=== PATIENT | male | born 1980 | race Caucasian/White ===

== ENCOUNTER 2017-10-30 10:02 | Emergency (ER) | payer BC, OTHER ==
--- NOTE | 2017-10-30 10:17 | EDM.PDOC ---
ED HPI GENERAL MEDICAL PROBLEM - General Chief Complaint: Neuro Symptoms/Deficits Stated Complaint: DIZZINESS Time Seen by Provider: 10/30/17 10:17 Source of Information: Reports: Patient, Family History Limitations: Reports: No Limitations - History of Present Illness INITIAL COMMENTS - FREE TEXT/NARRATIVE: HISTORY AND PHYSICAL: 37-year-old male who is physically fit and not ill has experienced exquisite dizziness and difficulty getting up to the bathroom this morning History of Present Illness: walking back to the bed he had significant dizziness and difficulty with walking Smoker Review of Systems: As per history of present illness and below otherwise all systems reviewed and negative. Past medical history: As per history of present illness and as reviewed below otherwise noncontributory. Surgical history: As per history of present illness and as reviewed below otherwise noncontributory. Social history: No reported history of drug or alcohol abuse. Family history: As per history of present illness and as reviewed below otherwise noncontributory. Physical exam: Alert and oriented male who is answering questions appropriately in full sentences without any shortness of breath. Pain still patient does not have dizziness if turning his head he would have extreme vertigo. HEENT: Atraumatic, normocehpalic, pupils reactive, negative for conjunctival pallor or scleral icterus, mucous membranes moist, throat clear, neck supple, nontender, trachea midline. Lungs: Clear to auscultation, breath sounds equal bilaterally, chest non tender. Heart: S1S2, regular, negative for clicks, rubs, or JVD. Abdomen: Soft, nondistended, nontender. Negative for masses or hepatossplenmegaly. Negative for costovertebral tenderness. Pelvis: Stable nontender. Genitourinary: Deferred. Rectal: Deferred Extremities: Atraumatic, negative for cords or calf pain. Neurovascular unremarkable. Neuro: Awake, alert, oriented. Cranial nerves II through XII unremarkable. Cerebellum unremarkable. Motor and sensory unremarkable throughout. Exam nonfocal. Patient tends and understood diagnosis and recommended course of action. Questions were answered. Diagnostics: [] CBC CMP head CT scan amylase lipase troponin EKG chest x-ray Therapeutics: [] Impression: []#1 dehydration #2 vertigo #3 early maxillary sinusitis Plan: []Discharged to home Meclizine Augmentin 875 twice a day 10 days Follow-up with Tenisha maneuver by a therapist or chiropractor Return to the emergency room as discussed and directed Refresh with power aid or similar product Definitive disposition and diagnosis as appropriate pending reevaluation and review of above. 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 - Infectious Disease History Infectious Disease History: Reports: Chicken Pox - Past Surgical History Musculoskeletal Surgical History: Reports: Amputation, Other (See Below) Other Musculoskeletal Surgeries/Procedures:: left ring finger partial amputation Social & Family History - Family History Family Medical History: Noncontributory - Tobacco Use Smoking Status *Q: Current Every Day Smoker Years of Tobacco use: 20 Packs/Tins Daily: 1 - Caffeine Use Caffeine Use: Reports: Soda - Recreational Drug Use Recreational Drug Use: No ED ROS GENERAL - Review of Systems Review Of Systems: ROS reveals no pertinent complaints other than HPI. ED EXAM, NEURO - Physical Exam Exam: See Below Course - Vital Signs Last Recorded V/S: Last Vital Signs Temp 36.0 C 10/30/17 10:09 Pulse 87 10/30/17 10:09 Resp 20 10/30/17 10:09 BP 142/94 H 10/30/17 10:09 Pulse Ox 99 10/30/17 10:09 - Orders/Labs/Meds Orders: Active Orders 24 hr Category Date Time Status EKG 12 Lead [EKG Documentation Completion] [RC] STAT Care 10/30/17 10:11 Active EKG Documentation Completion [RC] STAT Care 10/30/17 10:24 Inactive Chest 2V [CR] Stat Exams 10/30/17 10:28 Ordered CULTURE URINE [RM] Stat Lab 10/30/17 10:25 Ordered DRUG SCREEN, URINE [URCHEM] Stat Lab 10/30/17 10:25 Ordered UA W/MICROSCOPIC [URIN] Stat Lab 10/30/17 10:25 Ordered Sodium Chloride 0.9% [Saline Flush] Med 10/30/17 10:25 Active 10 ml FLUSH ASDIRECTED PRN Sodium Chloride 0.9% [Saline Flush] Med 10/30/17 10:25 Active 2.5 ml FLUSH ASDIRECTED PRN Saline Lock Insert [OM.PC] Stat Oth 10/30/17 10:24 Ordered Medication Orders Sodium Chloride (Saline Flush) 10 ml FLUSH ASDIRECTED PRN PRN Reason: Keep Vein Open Last Admin: 10/30/17 10:33 Dose: 10 ml Sodium Chloride (Saline Flush) 2.5 ml FLUSH ASDIRECTED PRN PRN Reason: Keep Vein Open Last Admin: 10/30/17 10:33 Dose: 2.5 ml Labs: Laboratory Tests 10/30/17 10/30/17 10/30/17 Range/Units 10:13 10:13 10:13 WBC 8.56 (4.0-11.0) K/uL RBC 5.32 (4.50-5.90) M/uL Hgb 17.2 H (13.0-17.0) g/dL Hct 48.3 (38.0-50.0) % MCV 90.8 (80.0-98.0) fL MCH 32.3 H (27.0-32.0) pg MCHC 35.6 (31.0-37.0) g/dL RDW Std Deviation 42.3 (28.0-62.0) fl RDW Coeff of Sydnee 13 (11.0-15.0) % Plt Count 239 (150-400) K/uL MPV 10.40 (7.40-12.00) fL Neut % (Auto) 49.4 (48.0-80.0) % Lymph % (Auto) 39.1 (16.0-40.0) % [place] % (Auto) 7.1 (0.0-15.0) % Eos % (Auto) 3.6 (0.0-7.0) % Baso % (Auto) 0.8 (0.0-1.5) % Neut # (Auto) 4.2 (1.4-5.7) K/uL Lymph # (Auto) 3.4 H (0.6-2.4) K/uL [place] # (Auto) 0.6 (0.0-0.8) K/uL Eos # (Auto) 0.3 (0.0-0.7) K/uL Baso # (Auto) 0.1 (0.0-0.1) K/uL Nucleated RBC % 0.0 /100WBC Nucleated RBCs # 0 K/uL Sodium 138 (136-148) mmol/L Potassium 3.7 (3.5-5.1) mmol/L Chloride 104 (98-107) mmol/L Carbon Dioxide 21.3 (21.0-32.0) mmol/L BUN 14 (7.0-18.0) mg/dL Creatinine 1.1 (0.8-1.3) mg/dL Est Cr Clr Drug Dosing 88.09 mL/min Estimated GFR (MDRD) > 60.0 ml/min Glucose 116 H (74-106) mg/dL Calcium 8.8 (8.5-10.1) mg/dL Total Bilirubin 0.4 (0.2-1.0) mg/dL AST 26 (15-37) IU/L ALT 54 (14-63) IU/L Alkaline Phosphatase 66 (46-116) U/L Ammonia 53 (19-54) ug/dL Troponin I < 0.050 (0.000-0.056) ng/mL Total Protein 7.2 (6.4-8.2) g/dL Albumin 3.8 (3.4-5.0) g/dL Globulin 3.4 (2.0-3.5) g/dL Albumin/Globulin Ratio 1.1 L (1.3-2.8) Amylase 29 (25-115) U/L Lipase 108 (73-393) U/L Meds: Medications Generic Name Dose Route Start Last Admin Trade Name Freq PRN Reason Stop Dose Admin Sodium Chloride 10 ml 10/30/17 10:25 10/30/17 10:33 Saline Flush FLUSH 10 ml ASDIRECTED PRN Administration Keep Vein Open Sodium Chloride 2.5 ml 10/30/17 10:25 10/30/17 10:33 Saline Flush FLUSH 2.5 ml ASDIRECTED PRN Administration Keep Vein Open Discontinued Medications Generic Name Dose Route Start Last Admin Trade Name Freq PRN Reason Stop Dose Admin Aspirin 325 mg 10/30/17 10:25 10/30/17 10:32 Aspirin PO 10/30/17 10:26 325 mg ONETIME ONE Administration Sodium Chloride 1,000 mls @ 999 mls/hr 10/30/17 10:25 10/30/17 10:32 Normal Saline IV 10/30/17 11:25 999 mls/hr STAT ONE Administration Meclizine HCl 25 mg 10/30/17 11:51 Antivert PO 10/30/17 11:52 ONETIME ONE Departure - Departure Time of Disposition: 12:01 Disposition: Home, Self-Care 01 Condition: Good Clinical Impression: Vertigo, Dehydration Sinusitis Qualifiers: Sinusitis location: maxillary Chronicity: acute Recurrence: non-recurrent Qualified Code(s): J01.00 - Acute maxillary sinusitis, unspecified - Discharge Information Prescriptions: Amoxicillin/Potassium Clav [Augmentin 875-125 Tablet] 1 each PO BID #20 tablet Meclizine [Antivert] 25 mg PO TID PRN #30 tab PRN Reason: Dizziness Instructions: Dehydration, Adult, [id number], Vertigo, Dizziness, Easy-to- Read, How to Perform the Tenisha Maneuver Referrals: PCP,None [Primary Care Provider] - Forms: ED Department Discharge Additional Instructions: The following information is given to patients seen in the emergency department who are being discharged to home. This information is to outline your options for follow-up care. We provide all patients seen in our emergency department with a follow-up referral. The need for follow-up, as well as the timing and circumstances, are variable depending upon the specifics of your emergency department visit. If you don't have a primary care physician on staff, we will provide you with a referral. We always advise you to contact your personal physician following an emergency department visit to inform them of the circumstance of the visit and for follow-up with them and/or the need for any referrals to a consulting specialist. The emergency department will also refer you to a specialist when appropriate. This referral assures that you have the opportunity for followup care with a specialist. All of these measure are taken in an effort to provide you with optimal care, which includes your followup. Under all circumstances we always encourage you to contact your private physician who remains a resource for coordinating your care. When calling for followup care, please make the office aware that this follow-up is from your recent emergency room visit. If for any reason you are refused follow-up, please contact the [facility] emergency department at and asked to speak to the emergency department charge nurse. Follow up with your primary care provider: you are found to be Dehydrated Vertigo Mild sinusitis Medications have been sent to your pharmacy Worsening of symptoms return for further evaluation - My Orders Last 24 Hours: My Active Orders 10/30/17 10:24 EKG Documentation Completion [RC] STAT Saline Lock Insert [OM.PC] Stat 10/30/17 10:25 CULTURE URINE [RM] Stat DRUG SCREEN, URINE [URCHEM] Stat UA W/MICROSCOPIC [URIN] Stat Sodium Chloride 0.9% [Saline Flush] 10 ml FLUSH ASDIRECTED PRN Sodium Chloride 0.9% [Saline Flush] 2.5 ml FLUSH ASDIRECTED PRN 10/30/17 10:28 Chest 2V [CR] Stat - Assessment/Plan Last 24 Hours: My Active Orders 10/30/17 10:24 EKG Documentation Completion [RC] STAT Saline Lock Insert [OM.PC] Stat 10/30/17 10:25 CULTURE URINE [RM] Stat DRUG SCREEN, URINE [URCHEM] Stat UA W/MICROSCOPIC [URIN] Stat Sodium Chloride 0.9% [Saline Flush] 10 ml FLUSH ASDIRECTED PRN Sodium Chloride 0.9% [Saline Flush] 2.5 ml FLUSH ASDIRECTED PRN 10/30/17 10:28 Chest 2V [CR] Stat
[2017-10-30] MEDS: Sodium Chloride 0.9% 1,000 ML IV ONE (10:32)
[2017-10-30] MEDS: Aspirin 325 MG Tab PO ONE (10:32)
[2017-10-30] MEDS: Sodium Chloride 0.9% 2.5 ML Syringe FLUSH PRN (10:33)
[2017-10-30] MEDS: Sodium Chloride 0.9% 10 ML Syringe FLUSH PRN (10:33)
[2017-10-30 11:06] LABS: CHLORIDE,CL 104 mmol/L (98-107); SODIUM,NA 138 mmol/L (136-148)
--- NOTE | 2017-10-30 11:28 | CT ---
CT brain scan Clinical history: Headache Comparison: None. Findings: The ventricles and sulci are within normal limits showing no evidence of mass edema hemorrh age or space occupying abnormality. There is no evidence of blood at the base the brain to suggest grant barachnoid hemorrhage. There is minor mucosal thickening in the maxillary sinuses without evidence of significant sinusitis in the mastoid air cells are normal. Impression: No significant CT abnormalities.
[2017-10-30] MEDS: Meclizine 25 MG Tab PO ONE (12:07)
== END 2017-10-30 12:45 | disposition home or self-care (01) ==
LOC: MW.ED 10:02
DX: E86.0 Dehydration (principal); J01.00 Acute maxillary sinusitis, unspecified; R42 Dizziness and giddiness; I10 Essential (primary) hypertension; F17.210 Nicotine dependence, cigarettes, uncomplicated
CPT/HCPCS: 70450; 80053; 82140; 82150; 83690; 84484; 85025; 93005; 96360; 96361; 99284; A9270; J7040; 99283

== ENCOUNTER 2018-09-04 06:55 | Emergency (ER) | payer BC ==
[2018-09-04] MEDS ORDERED: Cyclobenzaprine 10 MG Tab PO ONE (07:18)
[2018-09-04] MEDS ORDERED: Sodium Chloride 0.9% 2.5 ML Syringe FLUSH PRN (07:18)
[2018-09-04] MEDS ORDERED: Sodium Chloride 0.9% 1,000 ML IV ONE (07:18)
[2018-09-04] MEDS ORDERED: Ketorolac 30 MG/ML SDV IVPUSH ONE (07:18)
[2018-09-04] MEDS ORDERED: Sodium Chloride 0.9% 10 ML Syringe FLUSH PRN (07:18)
--- NOTE | 2018-09-04 07:21 | EDM.PDOC ---
ED HPI GENERAL MEDICAL PROBLEM - General Chief Complaint: General Stated Complaint: DIZZINESS Time Seen by Provider: 09/04/18 06:58 Source of Information: Reports: Patient History Limitations: Reports: No Limitations - History of Present Illness INITIAL COMMENTS - FREE TEXT/NARRATIVE: History of present illness: []Patient woke up this morning got out of bed and walked downstairs to use the bathroom when he became flushed hot and sweaty. He denies any dizziness, headache, chest pain or shortness of breath he for after this episode. He went back upstairs and asked his to drive him to the emergency room and got outside of his house he became nauseated and vomited. Patient has chronic back pain and while he was vomiting throughout his back. His pain in his left lower back without radiation to his legs denies any incontinence. She denied any chest pain Review of systems: As per history of present illness and below otherwise all systems reviewed and negative. Past medical history: As per history of present illness and as reviewed below otherwise noncontributory. Surgical history: As per history of present illness and as reviewed below otherwise noncontributory. Social history: No reported history of drug or alcohol abuse. Family history: As per history of present illness and as reviewed below otherwise noncontributory. Physical exam: General: Well developed, well nourished in NAD HEENT: Atraumatic, normocephalic, pupils reactive, negative for conjunctival pallor or scleral icterus, mucous membranes moist, throat clear, neck supple, nontender, trachea midline. Lungs: Clear to auscultation, breath sounds equal bilaterally, chest nontender. Heart: S1S2, regular, negative for clicks, rubs, or JVD. Abdomen: NABS, Soft, nondistended, nontender. Negative for masses or hepatosplenomegaly. Negative for costovertebral tenderness. Pelvis: Stable nontender. Genitourinary: Deferred. Rectal: Deferred. Extremities: Atraumatic, negative for cords or calf pain. Neurovascular unremarkable. Neuro: Awake, alert, oriented. Cranial nerves II through XII unremarkable. Cerebellum unremarkable. Motor and sensory unremarkable throughout. Exam nonfocal. Skin:warm and dry Diagnostics: EKG, CBC, chemistry, troponin 2 Therapeutics: Toradol, IV fluids ED Course: sTable Impression: Vasovagal reaction Prescriptions: None Plan: Follow-up with primary care return to ER if symptoms worsen or change Definitive disposition and diagnosis as appropriate pending reevaluation and review of above. 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 Psychiatric History: Reports: Depression, PTSD - Infectious Disease History Infectious Disease History: Reports: Chicken Pox - Past Surgical History HEENT Surgical History: Reports: Oral Surgery, Tonsillectomy GI Surgical History: Reports: Appendectomy Musculoskeletal Surgical History: Reports: Amputation, Other (See Below) Other Musculoskeletal Surgeries/Procedures:: left ring finger partial amputation Social & Family History - Family History Family Medical History: Noncontributory - Tobacco Use Smoking Status *Q: Current Every Day Smoker Years of Tobacco use: 20 Packs/Tins Daily: 1 - Caffeine Use Caffeine Use: Reports: Coffee, Energy Drinks, Soda - Recreational Drug Use Recreational Drug Use: No ED ROS GENERAL - Review of Systems Review Of Systems: ROS reveals no pertinent complaints other than HPI. ED EXAM, GENERAL - Physical Exam Exam: See Below (See history of present illness) Course - Vital Signs Last Recorded V/S: Last Vital Signs Temp 97.3 F 09/04/18 08:55 Pulse 78 09/04/18 10:47 Resp 16 09/04/18 10:47 BP 125/90 09/04/18 10:47 Pulse Ox 95 09/04/18 10:47 - Orders/Labs/Meds Orders: Active Orders 24 hr Category Date Time Status EKG Documentation Completion [RC] STAT Care 09/04/18 07:17 Active Saline Lock Insert [OM.PC] Stat Oth 09/04/18 07:18 Ordered Labs: Laboratory Tests 09/04/18 09/04/18 09/04/18 Range/Units 07:46 07:46 09:54 WBC 7.58 (4.0-11.0) K/uL RBC 5.00 (4.50-5.90) M/uL Hgb 16.1 (13.0-17.0) g/dL Hct 45.8 (38.0-50.0) % MCV 91.6 (80.0-98.0) fL MCH 32.2 H (27.0-32.0) pg MCHC 35.2 (31.0-37.0) g/dL RDW Std Deviation 43.1 (28.0-62.0) fl RDW Coeff of Sydnee 13 (11.0-15.0) % Plt Count 244 (150-400) K/uL MPV 10.00 (7.40-12.00) fL Neut % (Auto) 45.1 L (48.0-80.0) % Lymph % (Auto) 42.5 H (16.0-40.0) % [place] % (Auto) 7.7 (0.0-15.0) % Eos % (Auto) 4.0 (0.0-7.0) % Baso % (Auto) 0.7 (0.0-1.5) % Neut # (Auto) 3.4 (1.4-5.7) K/uL Lymph # (Auto) 3.2 H (0.6-2.4) K/uL [place] # (Auto) 0.6 (0.0-0.8) K/uL Eos # (Auto) 0.3 (0.0-0.7) K/uL Baso # (Auto) 0.1 (0.0-0.1) K/uL Nucleated RBC % 0.0 /100WBC Nucleated RBCs # 0 K/uL Sodium 140 (136-148) mmol/L Potassium 3.7 (3.5-5.1) mmol/L Chloride 106 (98-107) mmol/L Carbon Dioxide 22.5 (21.0-32.0) mmol/L BUN 13 (7.0-18.0) mg/dL Creatinine 1.0 (0.8-1.3) mg/dL Est Cr Clr Drug Dosing 95.95 mL/min Estimated GFR (MDRD) > 60.0 ml/min Glucose 118 H (74-106) mg/dL Calcium 8.4 L (8.5-10.1) mg/dL Total Bilirubin 0.4 (0.2-1.0) mg/dL AST 15 (15-37) IU/L ALT 39 (14-63) IU/L Alkaline Phosphatase 68 (46-116) U/L Troponin I < 0.050 < 0.050 (0.000-0.056) ng/mL Total Protein 7.1 (6.4-8.2) g/dL Albumin 3.5 (3.4-5.0) g/dL Globulin 3.6 (2.6-4.0) g/dL Albumin/Globulin Ratio 1.0 (0.9-1.6) Meds: Medications Discontinued Medications Generic Name Dose Route Start Last Admin Trade Name Freq PRN Reason Stop Dose Admin Cyclobenzaprine HCl 10 mg 09/04/18 07:18 09/04/18 08:51 Flexeril PO 09/04/18 07:19 Not Given ONETIME ONE Sodium Chloride 1,000 mls @ 999 mls/hr 09/04/18 07:18 09/04/18 07:36 Normal Saline IV 09/04/18 08:18 999 mls/hr .Bolus ONE Administration Ketorolac Tromethamine 30 mg 09/04/18 07:18 09/04/18 07:38 Toradol IVPUSH 09/04/18 07:19 30 mg ONETIME ONE Administration Sodium Chloride 10 ml 09/04/18 07:18 09/04/18 07:36 Saline Flush FLUSH 10 ml ASDIRECTED PRN Administration Keep Vein Open Sodium Chloride 2.5 ml 09/04/18 07:18 09/04/18 07:36 Saline Flush FLUSH 2.5 ml ASDIRECTED PRN Administration Keep Vein Open Departure - Departure Time of Disposition: 10:37 Disposition: Home, Self-Care 01 Condition: Good Clinical Impression: Vasovagal reaction - Discharge Information *PRESCRIPTION DRUG MONITORING PROGRAM REVIEWED*: No *COPY OF PRESCRIPTION DRUG MONITORING REPORT IN PATIENT LOR: No Instructions: Vasovagal Syncope, Adult Referrals: PCP,None [Primary Care Provider] - Forms: ED Department Discharge Additional Instructions: The following information is given to patients seen in the emergency department who are being discharged to home. This information is to outline your options for follow-up care. We provide all patients seen in our emergency department with a follow-up referral. The need for follow-up, as well as the timing and circumstances, are variable depending upon the specifics of your emergency department visit. If you don't have a primary care physician on staff, we will provide you with a referral. We always advise you to contact your personal physician following an emergency department visit to inform them of the circumstance of the visit and for follow-up with them and/or the need for any referrals to a consulting specialist. The emergency department will also refer you to a specialist when appropriate. This referral assures that you have the opportunity for follow-up care with a specialist. All of these measure are taken in an effort to provide you with optimal care, which includes your follow-up. Under all circumstances we always encourage you to contact your private physician who remains a resource for coordinating your care. When calling for follow-up care, please make the office aware that this follow-up is from your recent emergency room visit. If for any reason you are refused follow-up, please contact the [facility] Emergency Department at and asked to speak to the emergency department charge nurse. [facility] [address] [place] [address] - My Orders Last 24 Hours: My Active Orders 09/04/18 07:17 EKG Documentation Completion [RC] STAT 09/04/18 07:18 Saline Lock Insert [OM.PC] Stat - Assessment/Plan Last 24 Hours: My Active Orders 09/04/18 07:17 EKG Documentation Completion [RC] STAT 09/04/18 07:18 Saline Lock Insert [OM.PC] Stat
[2018-09-04 08:20] LABS: CHLORIDE,CL 106 mmol/L (98-107); SODIUM,NA 140 mmol/L (136-148)
== END 2018-09-04 10:47 | disposition home or self-care (01) ==
LOC: MW.ED 06:55
DX: R55 Syncope and collapse (principal); M54.5 Low back pain; I10 Essential (primary) hypertension; F32.9 Major depressive disorder, single episode, unspecified; Z98.890 Other specified postprocedural states; Z90.49 Acquired absence of other specified parts of digestive tract; Z79.899 Other long term (current) drug therapy; F17.210 Nicotine dependence, cigarettes, uncomplicated
CPT/HCPCS: 36415; 80053; 84484; 85025; 93005; 96361; 96374; 99284; J1885; J7040; 99283

== ENCOUNTER 2024-05-23 09:16 | Emergency (ER) | payer OTHER ==
[2024-05-23 09:33] LABS: BASOPHILS ABSOLUTE AUTO 0.08 K/uL (0.00-0.20); BASOPHILS PERCENT AUTO 0.8 % (0.0-1.0); EOSINOPHILS ABSOLUTE AUTO 0.34 K/uL (0.00-0.45); EOSINOPHILS PERCENT AUTO 3.5 % (0.0-6.0); HEMATOCRIT 49.4 % (42.0-52.0); HEMOGLOBIN 16.8 g/dL (14.0-18.0); IMMATURE GRAN ABSOLUTE AUTO 0.06 K/uL (0.00-0.05); IMMATURE GRAN PERCENT AUTO 0.6 % (0.0-0.4); LYMPHOCYTES ABSOLUTE AUTO 3.86 K/uL (1.00-4.80); LYMPHOCYTES PERCENT AUTO 40.2 % (24.0-44.0); MEAN CORPUSCULAR HEMOGLOBIN 31.1 pg (28.0-32.0); MEAN CORPUSCULAR VOLUME 91.5 fL (83.0-99.0); MEAN PLATELET VOLUME 9.3 fL (9.4-12.4); MONOCYTES ABSOLUTE AUTO 0.58 K/uL (0.00-0.80); NEUTROPHILS ABSOLUTE AUTO 4.68 K/uL (1.80-7.70); NEUTROPHILS PERCENT AUTO 48.9 % (41.0-71.0); PLATELET COUNT,PLT 311 K/uL (150-400)
[2024-05-23 10:03] LABS: A/G RATIO 1.1 (0.9-1.6); ALBUMIN 4.2 g/dL (3.4-5.0); BILIRUBIN TOTAL 0.6 mg/dL (0.2-1.0); CALCIUM 9.1 mg/dL (8.5-10.1); CARBON DIOXIDE,CO2 28.4 mmol/L (21.0-32.0); EST CRCL DRUG DOSING (CG) 90.25 mL/min; POTASSIUM,K 3.9 mmol/L (3.5-5.1)
[2024-05-23] MEDS: Acetaminophen 500 MG Tab PO ONE (10:27)
[2024-05-23] MEDS: Lidocaine 4% 1 each Patch TOP ONE (10:28)
[2024-05-23 10:37] LABS: APPEARANCE,URINE CLEAR; BILIRUBIN,URINE NEGATIVE (NEGATIVE); COLOR,URINE YELLOW; GLUCOSE,URINE NEGATIVE (NEGATIVE); KETONES,URINE NEGATIVE (NEGATIVE); LEUKOCYTE ESTERASE,URINE NEGATIVE (NEGATIVE); NITRITE,URINE NEGATIVE (NEGATIVE); OCCULT BLOOD,URINE NEGATIVE (NEGATIVE); PROTEIN,URINE NEGATIVE (NEGATIVE); UROBILINOGEN,URINE 0.2 EU/dL (<2.0)
== END 2024-05-23 11:13 | disposition home or self-care (01) ==
LOC: MW.ED 09:16
DX: M54.9 Dorsalgia, unspecified (principal); I10 Essential (primary) hypertension; E78.00 Pure hypercholesterolemia, unspecified; Z90.49 Acquired absence of other specified parts of digestive tract; Z79.899 Other long term (current) drug therapy; Z75.8 Other problems related to medical facilities and other health care
CPT/HCPCS: 36415; 80053; 81003; 85025; 99283; A9270